=== PATIENT | female | born 1980 | race American Indian/Alaskan Native ===

== ENCOUNTER 2017-03-16 16:45 | Emergency (ER) | payer MEDICAID ==
--- NOTE | 2017-03-16 17:37 | Emergency Department Report ---
ED Chest Pain HPI - General Chief Complaint: Chest Pain Stated Complaint: CHEST PAIN Time Seen by Provider: 03/16/17 17:28 Source: patient, EMS Mode of arrival: Stretcher Limitations: No Limitations - History of Present Illness Initial Comments: This is a 36-year-old -[place] female presents to the emergency department from home by EMS with complaint of midsternal chest tightness and a cough that began about 1:30 PM. Patient says she went to bed last night feeling fine and awoke with a slightly sore throat and then the rest the symptoms began in the afternoon. She did not take anything for symptoms prior to presentation. She denies any fever, nausea, vomiting, diaphoresis or any shortness of breath. She has a history of hypertension for which she takes hydrochlorothiazide. Her primary care doctor is a family physician in [place]. No recent travel or sick contacts at home. Severity scale (0 -10): 6 - Related Data Home Medications Medication Instructions Recorded Confirmed Last Taken Hydrochlorothiazide [Hctz] 12.5 mg PO QDAY 03/16/17 03/16/17 03/16/17 Previous Rx's Medication Instructions Recorded Last Taken Type ALBUTEROL Inhaler [ProAir HFA 2 puff IH QID PRN #1 inhalation 03/16/17 Unknown Rx Inhaler] predniSONE [Deltasone] 20 mg PO QDAY #5 tab 03/16/17 Unknown Rx Allergies Allergy/AdvReac Type Severity Reaction Status Date / Time No Known Allergies Allergy Unverified 03/16/17 17:18 JUWAN score - Juwan Score Age > 65: (0) No Aspirin use within the Past 7 Days: (0) No 3 or more CAD Risk Factors: (0) No 2 or more Angina events in past 24 hrs: (1) Yes Known CAD with more than 50% Stenosis: (0) No Elevated Cardiac Markers: (0) No ST Deviation Greater than 0.5mm: (0) No JUWAN Score: 1 ED Review of Systems ROS: Stated complaint: CHEST PAIN Other details as noted in HPI Comment: All other systems reviewed and negative Constitutional: denies: chills, fever Eyes: denies: eye pain, eye discharge, vision change ENT: denies: ear pain, dental pain Respiratory: cough. denies: wheezing Cardiovascular: chest pain. denies: edema Gastrointestinal: denies: abdominal pain, nausea, diarrhea Genitourinary: denies: urgency, dysuria, discharge Musculoskeletal: denies: back pain, joint swelling, arthralgia Skin: denies: rash, lesions Neurological: denies: headache, weakness, paresthesias ED Past Medical Hx - Past Medical History Previous Medical History?: Yes Hx Hypertension: Yes - Social History Smoking Status: Never Smoker Substance Use Type: None - Medications Home Medications: Home Medications Medication Instructions Recorded Confirmed Last Taken Type ALBUTEROL Inhaler [ProAir HFA 2 puff IH QID PRN #1 inhalation 03/16/17 Unknown Rx Inhaler] Hydrochlorothiazide [Hctz] 12.5 mg PO QDAY 03/16/17 03/16/17 03/16/17 History predniSONE [Deltasone] 20 mg PO QDAY #5 tab 03/16/17 Unknown Rx ED Physical Exam - General Limitations: No Limitations - Other Other exam information: GENERAL: The patient is well-developed well-nourished. HEENT: Normocephalic. Atraumatic. Extraocular motions are intact. Patient has moist mucous membranes. Pupils equal reactive to light bilaterally. NECK: Supple. Trachea is midline. CHEST/LUNGS: Mild expiratory wheezing. No tachypnea or accessory muscle use. There is no respiratory distress noted. HEART/CARDIOVASCULAR: Regular. There is no tachycardia. There is no gallop rub or murmur. ABDOMEN: Abdomen is soft, nontender. Patient has normal bowel sounds. Morbidly obese habitus. SKIN: Skin is warm and dry. NEURO: The patient is awake, alert, and oriented. The patient is cooperative. The patient has no focal neurologic deficits. The patient has normal speech. MUSCULOSKELETAL: There is no tenderness or deformity. There is no limitation range of motion. There is no evidence of acute injury. ED Course Vital Signs 03/16/17 03/16/17 03/16/17 16:49 18:26 18:28 Temperature 98.6 F Pulse Rate 67 64 62 Respiratory 18 17 15 Rate Blood Pressure 179/63 179/63 179/63 Blood Pressure [Left] O2 Sat by Pulse 100 98 98 Oximetry 03/16/17 03/16/17 03/16/17 18:30 18:32 18:34 Temperature Pulse Rate 61 66 61 Respiratory 18 15 12 Rate Blood Pressure 179/63 179/63 179/63 Blood Pressure [Left] O2 Sat by Pulse 99 99 100 Oximetry 03/16/17 03/16/17 03/16/17 18:36 18:38 18:40 Temperature Pulse Rate 61 64 59 L Respiratory 18 13 18 Rate Blood Pressure 179/63 179/63 179/63 Blood Pressure [Left] O2 Sat by Pulse 100 96 98 Oximetry 03/16/17 03/16/17 03/16/17 18:42 18:44 18:46 Temperature Pulse Rate 66 67 61 Respiratory 19 12 21 Rate Blood Pressure 179/63 179/63 179/63 Blood Pressure [Left] O2 Sat by Pulse 99 100 Oximetry 03/16/17 03/16/17 03/16/17 18:48 18:50 18:52 Temperature Pulse Rate 57 L 66 66 Respiratory 16 21 16 Rate Blood Pressure 179/63 179/63 179/63 Blood Pressure [Left] O2 Sat by Pulse 100 100 99 Oximetry 03/16/17 03/16/17 03/16/17 18:54 18:56 18:58 Temperature 99.1 F Pulse Rate 69 65 70 Respiratory 17 18 18 Rate Blood Pressure 172/71 172/71 172/71 Blood Pressure 172/71 [Left] O2 Sat by Pulse 100 99 98 Oximetry 03/16/17 03/16/17 03/16/17 19:00 19:02 19:04 Temperature Pulse Rate 76 65 67 Respiratory 21 19 12 Rate Blood Pressure 172/71 159/75 159/75 Blood Pressure [Left] O2 Sat by Pulse 100 100 98 Oximetry 03/16/17 03/16/17 03/16/17 19:06 19:08 19:10 Temperature Pulse Rate 66 71 70 Respiratory 16 17 15 Rate Blood Pressure 159/75 159/75 159/75 Blood Pressure [Left] O2 Sat by Pulse 98 99 99 Oximetry 03/16/17 03/16/17 03/16/17 19:12 19:14 19:16 Temperature Pulse Rate 69 66 67 Respiratory 17 22 19 Rate Blood Pressure 159/75 159/75 159/75 Blood Pressure [Left] O2 Sat by Pulse 98 100 100 Oximetry 03/16/17 03/16/17 03/16/17 19:18 19:20 19:22 Temperature Pulse Rate 68 66 68 Respiratory 21 25 H 14 Rate Blood Pressure 159/75 159/75 159/75 Blood Pressure [Left] O2 Sat by Pulse 100 100 100 Oximetry 0403/16/17 03/16/17 19:25 19:27 19:29 Temperature Pulse Rate 66 70 69 Respiratory 11 L 15 19 Rate Blood Pressure 179/63 179/63 179/63 Blood Pressure [Left] O2 Sat by Pulse 98 100 99 Oximetry 03/16/17 03/16/17 03/16/17 19:30 19:33 19:35 Temperature Pulse Rate 68 65 71 Respiratory 14 13 13 Rate Blood Pressure 149/92 149/92 159/75 Blood Pressure [Left] O2 Sat by Pulse 100 100 100 Oximetry 03/16/17 03/16/17 03/16/17 19:37 19:39 19:56 Temperature Pulse Rate 64 67 66 Respiratory 11 L 22 Rate Blood Pressure 159/75 159/75 149/92 Blood Pressure [Left] O2 Sat by Pulse 100 99 Oximetry 03/16/17 03/16/17 20:01 20:41 Temperature Pulse Rate 83 Respiratory 24 18 Rate Blood Pressure 124/82 Blood Pressure [Left] O2 Sat by Pulse 96 Oximetry ED Medical Decision Making - Lab Data Result diagrams: 03/16/17 17:30 03/16/17 17:30 - EKG Data -: EKG Interpreted by Me EKG shows normal: sinus rhythm, axis (LAD), intervals, QRS complexes (LVH), ST- T waves Rate: normal - EKG Data When compared to previous EKG there are: previous EKG unavailable Interpretation: LVH - Radiology Data Radiology results: image reviewed interpreted by me: Chest x-ray did not show any acute process. Heart is normal shape and size. No effusions. No pneumothorax. No signs of pneumonia seen. - Medical Decision Making 36-year-old female presents to the emergency department with complaint of some nonspecific midsternal chest tightness. Her only risk factor is hypertension. EKG does not show any signs of ST elevation TN or dysrhythmia. Patient's labs include negative troponins 2, negative d-dimer. There is no leukocytosis, electrolyte abnormalities, renal insufficiency. Patient was given a DuoNeb and says that that really helped with her symptoms. She required another dose of albuterol before she started feeling much better. Her vital signs are stable including being afebrile. Chest x-ray does not show any pneumonia, pleural effusion, pneumothorax or any acute process. Patient has a JUWAN score of one of her discomfort is considered angina and 0 if not. She is very low on the heart score. For all these reasons patient appears safe for discharge home. She'll go home with an albuterol inhaler, a few days of steroids and encouragement to follow-up with her primary care doctor. She will return to the ER with any worsening of her symptoms or any acute distress. - Differential Diagnosis TN, PE, pneumonia, asthma, bronchitis Critical Care Time: No Critical care attestation.: If time is entered above; I have spent that time in minutes in the direct care of this critically ill patient, excluding procedure time. ED Disposition Clinical Impression: Chest tightness, Bronchospasm Hypertension Qualifiers: Hypertension type: essential hypertension Qualified Code(s): I10 - Essential ( primary) hypertension Disposition: DISCHARGED TO HOME OR SELFCARE Is pt being admited?: No Condition: Stable Instructions: Chest Pain (ED), Hypertension (ED), Bronchospasm (ED) Additional Instructions: Please follow-up with a primary care doctor in the next few days. Return to the emergency department with any worsening of your symptoms or any acute distress. Please continue taking your hydrochlorothiazide. Try to stay away from foods that are high in salt and caffeinated products to help with her blood pressure. Prescriptions: ALBUTEROL Inhaler [ProAir HFA Inhaler] 2 puff IH QID PRN #1 inhalation PRN Reason: Shortness Of Breath predniSONE [Deltasone] 20 mg PO QDAY #5 tab Referrals: PRIMARY CARE, [Primary Care Provider] - 3-5 Days Time of Disposition: 23:23
[2017-03-16 18:15] LABS: Anion Gap 16 mmol/L; BUN/Creatinine Ratio 12.22; Blood Urea Nitrogen 11 mg/dL (7-17); Calcium 8.7 mg/dL (8.4-10.2); Carbon Dioxide 25 mmol/L (22-30); Creatine Kinase 61 units/L (30-135); Glucose 102 mg/dL (65-100); Potassium 4.1 mmol/L (3.6-5.0); Sodium 140 mmol/L (137-145)
[2017-03-16 18:22] LABS: Creatine Kinase MB < 1.0 ng/mL (0.0-4.0)
[2017-03-16 18:29] LABS: Basophils % (Auto) 0.4 % (0.0-1.8); Eosinophils % (Auto) 1.7 % (0.0-4.3); Hematocrit 30.4 % (30.3-42.9); Hemoglobin 9.5 gm/dl (10.1-14.3); Mean Corpuscular HGB Conc 31 % (30-34); Mean Corpuscular Volume 71 fl (79-97); Platelet Count 247 K/mm3 (140-440); Red Blood Count 4.26 M/mm3 (3.65-5.03); Red Cell Distribution Width 16.9 % (13.2-15.2); White Blood Count 9.1 K/mm3 (4.5-11.0)
[2017-03-16 18:30] LABS: Mean Corpuscular Hemoglobin 22 pg (28-32)
[2017-03-16] MEDS ORDERED: DUONEB 0.5 MG-3 MG/3 ML SOLN IH ONE (18:35)
[2017-03-16] MEDS ORDERED: BABY ASPIRIN PO ONE (18:36)
[2017-03-16] MEDS ORDERED: APRESOLINE IV ONE (19:04)
[2017-03-16] MEDS ORDERED: MORPHINE IV ONE (20:22)
[2017-03-16] MEDS ORDERED: PROVENTIL IH ONE (22:07)
[2017-03-17 00:50] VITALS: BP 172/72
--- NOTE | 2017-03-17 08:47 | XRay Report ---
PORTABLE CHEST: An AP portable view of the chest demonstrates a normal cardiac contour considering the limits of this technique. The lungs are clear with no evidence of infiltrate, fluid or failure. IMPRESSION: Normal portable chest.
== END 2017-03-17 00:30 | disposition home or self-care (01) ==
LOC: ED 16:45
DX: J98.01 Acute bronchospasm (principal); I10 Essential (primary) hypertension
CPT/HCPCS: 36415; 71010; 80048; 82550; 82553; 83880; 84484; 85025; 85379; 93005; 93010; 94640; 96374; 96375; 99285; J2270; J2930

== ENCOUNTER 2017-12-28 14:26 | Emergency (ER) | payer MEDICAID ==
[2017-12-28 14:59] VITALS: BP 133/82
--- NOTE | 2017-12-28 17:41 | Emergency Department Report ---
Blank Doc - Documentation Documentation: Patient is a 37 [place] female who is presenting with lower abdominal cramping as well as vaginal bleeding. Patient is 6 weeks . Patient has had some spotting off and on during the however 2 days ago she on ultrasound did have a IUP with heartbeat. Patient states that the bleeding today was a little heavier but only when she wiped after urinating for her cramping is new. The patient is worried that she may have had a miscarriage. Patient will have ultrasound urinalysis and beta Quant performed here
--- NOTE | 2017-12-28 19:57 | Ultrasound Report ---
FINAL REPORT EXAM: US OB TRANSVAGINAL HISTORY: vag bleed TECHNIQUE: Ultrasound obstetrical transvaginal PRIORS: None. FINDINGS: There is gestational sac present within the uterus. There is pole with crown-rump length of 0.6 centimeters corresponding to estimated gestational age of 6 weeks 3 days. Estimated date of delivery is August 20, 2018. cardiac activity is present with heart rate of 133 beats per minute. The left ovary is not identified There is a right ovarian cyst likely corpus luteum measuring 1.9 centimeters. IMPRESSION: Single live intrauterine gestation estimated at 6 weeks 3 days Right ovarian cyst noted Left ovary not identified sonographically
--- NOTE | 2017-12-28 19:58 | Ultrasound Report ---
FINAL REPORT EXAM: US OB < = 14 WEEKS FETUS HISTORY: vag bleed TECHNIQUE: Ultrasound obstetrical transabdominal PRIORS: None. FINDINGS: There is gestational sac present within the uterus. There is pole with crown-rump length of 0.6 centimeters corresponding to estimated gestational age of 6 weeks 3 days. Estimated date of delivery is August 20, 2018. cardiac activity is present with heart rate of 133 beats per minute. The left ovary is not identified There is a right ovarian cyst likely corpus luteum measuring 1.9 centimeters. IMPRESSION: Single live intrauterine gestation estimated at 6 weeks 3 days Right ovarian cyst noted
[2017-12-28 21:00] LABS: Bilirubin,Urine NEG (Negative); Blood,Urine NEG (Negative); Color,Urine Yellow (Yellow); Mucus,Urine FEW /HPF; Nitrite,Urine NEG (Negative); Protein,Urine <15 mg/dL mg/dL (Negative); Urobilinogen,Urine < 2.0 mg/dL (<2.0)
--- NOTE | 2017-12-28 21:38 | Emergency Department Report ---
ED Female HPI - General Chief complaint: Vaginal Bleeding Stated complaint: VAGINAL BLEED Time Seen by Provider: 12/28/17 17:19 Source: patient Mode of arrival: Ambulatory Limitations: No Limitations - History of Present Illness Initial comments: This is a 37 y.o. female presents with vaginal bleeding with every wipe. She reports being 6 weeks . She is concerned today because the bleeding is heavier than before. She is wearing a pad and have not noticed bleeding on pad. She is followed by [facility] and informed of constipation on US to confirm . She was placed on macrobid last month for a UTI and concerned it didn 't resolve or possibly a miscarriage. MD Complaint: vaginal bleeding -: days(s) (2) Location: perineum Severity: moderate Severity scale (0 -10): 4 Improves with: none Worsens with: none Associated Symptoms: vaginal bleeding - Related Data Sexually active: Yes : 4 Para: 3 A: 0 Home Medications Medication Instructions Recorded Confirmed Last Taken Hydrochlorothiazide [Hctz] 12.5 mg PO QDAY 03/16/17 03/16/17 03/16/17 Previous Rx's Medication Instructions Recorded Last Taken Type ALBUTEROL Inhaler [ProAir HFA 2 puff IH QID PRN #1 inhalation 03/16/17 Unknown Rx Inhaler] predniSONE [Deltasone] 20 mg PO QDAY #5 tab 03/16/17 Unknown Rx Allergies Allergy/AdvReac Type Severity Reaction Status Date / Time No Known Allergies Allergy Verified 12/28/17 14:53 ED Review of Systems ROS: Stated complaint: VAGINAL BLEED Other details as noted in HPI Constitutional: denies: chills, fever Respiratory: denies: cough, shortness of breath, wheezing Cardiovascular: denies: chest pain, palpitations Gastrointestinal: constipation. denies: abdominal pain, nausea, vomiting, diarrhea, hematemesis, melena, hematochezia Genitourinary: discharge (bloody ) Musculoskeletal: denies: back pain, joint swelling, arthralgia Neurological: denies: headache, weakness, paresthesias ED Past Medical Hx - Past Medical History Hx Hypertension: Yes - Surgical History Past Surgical History?: No Hx Cholecystectomy: Yes - Social History Smoking Status: Never Smoker Substance Use Type: None - Medications Home Medications: Home Medications Medication Instructions Recorded Confirmed Last Taken Type ALBUTEROL Inhaler [ProAir HFA 2 puff IH QID PRN #1 inhalation 03/16/17 Unknown Rx Inhaler] Hydrochlorothiazide [Hctz] 12.5 mg PO QDAY 03/16/17 03/16/17 03/16/17 History predniSONE [Deltasone] 20 mg PO QDAY #5 tab 03/16/17 Unknown Rx ED Physical Exam - General Limitations: No Limitations General appearance: alert, in no apparent distress - Respiratory Respiratory exam: Present: normal lung sounds bilaterally. Absent: respiratory distress - Cardiovascular Cardiovascular Exam: Present: regular rate, normal rhythm. Absent: systolic murmur, diastolic murmur, rubs, gallop - GI/Abdominal GI/Abdominal exam: Present: soft, normal bowel sounds - Rectal Rectal exam: Present: hemorrhoids (external hemorrhoids and internal bleeding hemorrhoids) - Neurological Exam Neurological exam: Present: alert, oriented X3, normal gait ED Course Vital Signs 12/28/17 12/28/17 14:53 14:58 Temperature 98.2 F Pulse Rate 80 Respiratory 16 Rate Blood Pressure 133/82 [Left] O2 Sat by Pulse 100 Oximetry ED Medical Decision Making - Radiology Data Radiology results: image reviewed Transvaginal US: Single live intrauterine gestation estimated at 6 weeks 3 days Right ovarian cyst noted Left ovary not identified sonographically US: IMPRESSION: Single live intrauterine gestation estimated at 6 weeks 3 days Right ovarian cyst noted - Medical Decision Making This is a 37 y.o. Female presents with vaginal discharge for 2 days. She is . A0. Established OB patient at [facility], but she doesn't have a specific physician there. Patient is stable and in no acute distress. Obtained UA, which is normal. Transvaginal and US obtained and read by the radiologist. She is 6 weeks and 3 days gestation, right ovarian cyst, and left ovary not identified. On physical assessment external and internal hemorrhoids with active bleeding. Patient discharged home and f/u with [facility]. Critical care attestation.: If time is entered above; I have spent that time in minutes in the direct care of this critically ill patient, excluding procedure time. ED Disposition Clinical Impression: Bleeding internal hemorrhoids, Hemorrhoids, external Disposition: DC-01 TO HOME OR SELFCARE Is pt being admited?: No Does the pt Need Aspirin: No Condition: Stable Instructions: Hemorrhoids (ED), Rectal Bleeding (ED) Additional Instructions: Increase fluid intake and take stool softener daily. Apply hydrocortisone cream to external hemorrhoids. Follow up with [facility]. Referrals: BEL PITTS MD [Staff Physician] - 3-5 Days Time of Disposition: 22:00 Print Language: [place]
== END 2017-12-28 22:05 | disposition home or self-care (01) ==
LOC: ED 14:26
DX: O20.9 Hemorrhage in early pregnancy, unspecified (principal); K64.8 Other hemorrhoids; Z3A.01 Less than 8 weeks gestation of pregnancy
CPT/HCPCS: 36415; 76801; 76817; 81001; 84702; 86900; 86901